=== PATIENT | female | born 1965 ===

== ENCOUNTER → 2018-09-10 | Outpatient (CLI) | payer OTHER ==
[~2018-09-10] MED LIST: Advil Migraine200 MG PO; BUSP15 PO; CETI5 PO; METF500C PO; Norco 5-325 Ta1 EACH PO; Prilosec Otc20 MG PO; SUMA25 PO; Synthroid75 MCG PO
== END | disposition home or self-care (01) ==
LOC: LAB SHORT 14:56 → LAB EV 14:56
DX: N39.0 Urinary tract infection, site not specified (principal)
CPT/HCPCS: 87077; 87086; 87186

== ENCOUNTER 2020-11-05 09:54 | Day surgery (SDC) | payer OTHER ==
[~2020-11-05] VITALS: Ht 152.4 cm; Wt 72.9 kg
[2020-11-05] MEDS ORDERED: LEVO-T100 MC1 PO (10:54)
[2020-11-05] MEDS ORDERED: OMEP20ER PO (10:55)
[2020-11-05] MEDS ORDERED: GLIP5ER PO (10:56)
[2020-11-05] MEDS ORDERED: ROSUVASTATIN CAL5 MG PO (10:56)
[2020-11-05] MEDS ORDERED: ESCI10 PO (10:56)
[2020-11-05] MEDS ORDERED: BASAGLAR K100 UNIT/3 SC (10:57)
[2020-11-05] MEDS ORDERED: Atarax10 MG PO (10:58)
--- NOTE | 2020-11-05 14:21 | NUR ---
11/05/20 1421 Radha George PT DRANK COFFEE THIS AM WITH SUGAR, NOTIFIED. DR BARAHONA OKAY TO PROCEED LOCAL, NO SEDATION. PT IN AGREEMENT. BEDSIDE INJECTION WITH DR. LONG PERFORMED IN PRE-OP. 4ML 2% LIDOCAINE WITH EPI 1:100,000 INJECTED BY SURGEON. PT TOLERATED WELL.
== END 2020-11-05 12:48 | disposition home or self-care (01) ==
LOC: ORSCSDS 09:54
PROVIDERS: Orthopaedic Surgery
PROC: 0LN70ZZ Release Right Hand Tendon, Open Approach (ICD-10-PCS; principal; 2020-11-05 11:00)
DX: M65.30 Trigger finger, unspecified finger (principal); E66.9 Obesity, unspecified; Z68.31 Body mass index [BMI] 31.0-31.9, adult; F41.9 Anxiety disorder, unspecified; E11.9 Type 2 diabetes mellitus without complications; K21.9 Gastro-esophageal reflux disease without esophagitis; F17.210 Nicotine dependence, cigarettes, uncomplicated; Z79.4 Long term (current) use of insulin; Z79.899 Other long term (current) drug therapy
CPT/HCPCS: 82947; J0690; J7120

== ENCOUNTER 2021-10-26 18:14 | Emergency (ER) | payer OTHER ==
[~2021-10-26] VITALS: Ht 154.9 cm; Wt 72.6 kg
[~2021-10-26 18:14] MED LIST changes: +Atarax10 MG PO; +BASAGLAR K100 UNIT/3 SC; +ESCI10 PO; +GLIP5ER PO; +LEVO-T100 MC1 PO; +OMEP20ER PO; +ROSUVASTATIN CAL5 MG PO
[2021-10-26] MEDS ORDERED: GLIP5ER PO (19:30)
== END 2021-10-26 21:31 | disposition home or self-care (01) ==
LOC: ER 18:14
DX: I62.00 Nontraumatic subdural hemorrhage, unspecified (principal); E11.9 Type 2 diabetes mellitus without complications; E03.9 Hypothyroidism, unspecified; F17.200 Nicotine dependence, unspecified, uncomplicated; Z79.899 Other long term (current) drug therapy; Z79.4 Long term (current) use of insulin; Z79.890 Hormone replacement therapy; Z88.5 Allergy status to narcotic agent
CPT/HCPCS: 70450

== ENCOUNTER 2021-11-09 13:12 | Emergency (ER) | payer OTHER ==
[~2021-11-09] VITALS: Ht 154.9 cm; Wt 71.7 kg
== END 2021-11-09 15:45 | disposition left against medical advice (07) ==
LOC: ER 13:12
DX: R51.9 Headache, unspecified (principal)
CPT/HCPCS: 70450; 99282-25

== ENCOUNTER 2022-09-07 23:20 | Emergency (ER) | payer OTHER ==
[~2022-09-07] VITALS: Ht 154.9 cm; Wt 74.8 kg
[2022-09-08 00:52] LABS: BASOPHILS ABSOLUTE AUTO 0.07 K/mm3 (0.00-0.23); BASOPHILS PERCENT AUTO 1 % (0-2); EOSINOPHILS ABSOLUTE AUTO 0.14 K/mm3 (0.00-0.68); EOSINOPHILS PERCENT AUTO 1 % (0-6); Hematocrit 44.9 % (33.0-51.0); Hemoglobin 15.4 g/dL (11.5-16.0); IMMATURE GRAN ABSOLUTE AUTO 0.21 K/mm3 (0.00-0.10); IMMATURE GRAN PERCENT AUTO 2 % (0-1); LYMPHOCYTES ABSOLUTE AUTO 2.71 K/mm3 (0.84-5.20); LYMPHOCYTES PERCENT AUTO 21 % (21-46); MONOCYTES PERCENT AUTO 5 % (4-13); Mean Corpuscular HGB 29.4 pg (26.0-34.0); Mean Corpuscular HGB Conc 34.3 g/dL (31.5-36.5); Mean Corpuscular Volume 86 fL (80-100); Mean Platelet Volume 10.4 fL (9.1-12.4); NEUTROPHILS ABSOLUTE AUTO 8.96 K/mm3 (1.96-9.15); NEUTROPHILS PERCENT AUTO 71 % (41-73); Platelet Count 286 K/mm3 (150-400); RDW Coefficient Variation 13.7 % (11.7-14.2); RDW Standard Deviation 42.6 fL (35.1-46.3); Red Blood Cell Count 5.23 M/mm3 (3.80-5.20); White Blood Cell Count 12.69 K/mm3 (4.00-11.30)
[2022-09-08 01:11] LABS: Albumin, Blood 3.6 g/dL (3.4-5.0); Bilirubin, Total 0.3 mg/dL (0.1-1.0); Calcium, Blood 9.3 mg/dL (8.5-10.1); Creatinine, Blood 0.65 mg/dL (0.40-1.00); Globulin, Blood 3.6 g/dL (2.2-4.0); Potassium, Blood 4.3 mmol/L (3.5-5.5); Total Protein, Blood 7.2 g/dL (6.4-8.2)
[2022-09-08 01:57] LABS: Source, Urine Clean Catch
[2022-09-08 02:01] LABS: Bilirubin, Urine Neg (Neg); Blood, Urine Neg (Neg); Glucose Qualitative, Urine 4+ (Neg); Ketones, Urine 1+ (Neg); Leukocyte Esterase, Urine 2+ (Neg); Nitrite, Urine Pos (Neg); Protein, Urine 1+ (Neg); Urobilinogen, Urine NORM (Normal)
[2022-09-08 02:06] LABS: Appearance, Urine Hazy (Clear); Color, Urine Yellow (P-Yellow)
[2022-09-08 02:08] LABS: Bacteria Many /hpf; Red Blood Cells, Urine Not Seen /hpf (0-2); Squamous Epithelial Cells Rare /hpf (Few)
[2022-09-08] MEDS ORDERED: SULTRIDS PO (03:33)
[2022-09-08] MEDS ORDERED: PROBIOTIC DUO1 EACH PO (03:33)
[2022-09-08] MEDS ORDERED: FAMO20 PO (03:33)
[2022-09-08 03:44] VITALS: BP 127/71
== END 2022-09-08 03:55 | disposition home or self-care (01) ==
LOC: ER 23:20
PROVIDERS: Student in an Organized Health Care Education/Training Program
DX: N39.0 Urinary tract infection, site not specified (principal); R19.7 Diarrhea, unspecified; E11.9 Type 2 diabetes mellitus without complications; E03.9 Hypothyroidism, unspecified; K21.9 Gastro-esophageal reflux disease without esophagitis; F17.210 Nicotine dependence, cigarettes, uncomplicated; Z88.5 Allergy status to narcotic agent; Z79.4 Long term (current) use of insulin; Z79.84 Long term (current) use of oral hypoglycemic drugs; Z79.899 Other long term (current) drug therapy
CPT/HCPCS: 80053; 81001; 85025; 87077; 87086; 87186; 93005; 93010; 96374; 99284-25; A9270; J1885

== ENCOUNTER 2024-02-20 07:57 | Day surgery (SDC) | payer OTHER ==
[~2024-02-20] VITALS: Ht 154.9 cm; Wt 70.4 kg
[~2024-02-20 07:57] MED LIST changes: +FAMO20 PO; +NS 500 ML IV ONE; +PROBIOTIC DUO1 EACH PO; +SULTRIDS PO
[2024-02-20] MEDS ORDERED: CeFAZolin Sodium 2,000 MG VIAL ONE (08:06)
[2024-02-20] MEDS ORDERED: PRAV20 PO (08:28)
[2024-02-20] MEDS ORDERED: NS 500 ML IV ONE (08:30)
--- NOTE | 2024-02-20 08:45 | NUR ---
02/20/24 0845 Aria Roy 0840: TIMEOUT FOR PRE-OP INJECTION 0841: LOCAL INJECTION BY DR GERMAN TO OPERATIVE HAND AND WRIST OF 9 CC OF MIX OF 9CC LIDOCAINE 1% WITH EPI 1:100,000 WITH SODIUM BICARB
[2024-02-20] MEDS ORDERED: FentaNYL Citrate 50 MCG/ML 2 ML Injection ONE (08:54)
[2024-02-20] MEDS ORDERED: propofoL 20 ML IV ONE (09:04)
[2024-02-20 09:27] VITALS: BP 116/66
== END 2024-02-20 09:50 | disposition home or self-care (01) ==
LOC: ORSCSDS 07:57
PROVIDERS: Orthopaedic Surgery
PROC: 0LN50ZZ Release Right Lower Arm and Wrist Tendon, Open Approach (ICD-10-PCS; principal; 2024-02-20 09:15)
PROC: 01N54ZZ Release Median Nerve, Percutaneous Endoscopic Approach (ICD-10-PCS; principal; 2024-02-20 09:15)
DX: G56.01 Carpal tunnel syndrome, right upper limb (principal); M65.4 Radial styloid tenosynovitis [de Quervain]; E11.9 Type 2 diabetes mellitus without complications; F41.9 Anxiety disorder, unspecified; K21.9 Gastro-esophageal reflux disease without esophagitis; E07.9 Disorder of thyroid, unspecified; Z79.84 Long term (current) use of oral hypoglycemic drugs; Z79.4 Long term (current) use of insulin; Z79.85 Long-term (current) use of injectable non-insulin antidiabetic drugs; Z79.899 Other long term (current) drug therapy; F17.210 Nicotine dependence, cigarettes, uncomplicated
CPT/HCPCS: 82947; J0690; J2704; J3010; J7040